=== PATIENT | female | born 1965 | race Caucasian/White ===

== ENCOUNTER 2019-10-02 15:53 | Emergency (ER) | payer SELFPAY | END 2019-10-02 16:46 | disposition home or self-care (01) | LOC: ERS 15:53 | DX: S20.161A Insect bite (nonvenomous) of breast, right breast, initial encounter (principal); I10 Essential (primary) hypertension; F41.9 Anxiety disorder, unspecified; F32.9 Major depressive disorder, single episode, unspecified; Z79.899 Other long term (current) drug therapy; W57.XXXA Bitten or stung by nonvenomous insect and other nonvenomous arthropods, initial encounter | CPT/HCPCS: 99282 ==

== ENCOUNTER 2019-10-12 09:45 | Emergency (ER) | payer SELFPAY ==
[2019-10-12] MEDS ORDERED: Lorazepam 2 MG/ML VIAL ONE (10:27)
== END 2019-10-12 11:52 | disposition home or self-care (01) ==
LOC: ERS 09:45
DX: R11.2 Nausea with vomiting, unspecified (principal); I10 Essential (primary) hypertension; F41.9 Anxiety disorder, unspecified; F32.9 Major depressive disorder, single episode, unspecified; Z79.899 Other long term (current) drug therapy
CPT/HCPCS: 96361; 96374; J2060